=== PATIENT | female | born 1990 | race Caucasian/White ===

== ENCOUNTER 2018-11-08 10:29 | Emergency (ER) | payer BC ==
--- NOTE | 2018-11-08 10:48 | ED ---
Influenza-Like Illness - HPI Summary HPI Summary: 28 year old F brought in by EMS to [facility] from [facility] accompanied by complains of fever, chills, nasal congestion since Sunday11/03/18. Patient denies sore throat. The patient rates the pain 0/10 in severity. Symptoms aggravated by nothing. Symptoms alleviated by nothing. states that he had similar symptoms last week. - History of Current Complaint Time Seen by Provider: 11/08/18 10:41 Hx Obtained From: Patient, Family/Wafer Cutter - Onset/Duration: Lasting Days - 5, Still Present Associated Signs & Symptoms: Negative - sore throat - Allergy/Home Medications Allergies/Adverse Reactions: Allergies Allergy/AdvReac Type Severity Reaction Status Date / Time No Known Allergies Allergy Verified 11/08/18 10:50 Home Medications: Home Medications L.acidoph,Paracasei, B.lactis [Probiotic] 1 each PO DAILY 11/08/18 [History Confirmed 11/08/18] Levonorgestrel (IUD) (NF) [Mirena (NF)] 20 mcg IU ONCE 11/08/18 [History Confirmed 11/08/18] Sertraline* [Zoloft*] 100 mg PO DAILY 11/08/18 [History Confirmed 11/08/18] PMH/Surg Hx/FS Hx/Imm Hx Cardiovascular History: Denies: Hx Pacemaker/ICD Sensory History: Denies: Hx Legally Blind Opthamlomology History: Denies: Hx Legally Blind Psychiatric History: Reports: Hx Depression - Surgical History Surgery Procedure, Year, and Place: none Infectious Disease History: Denies: Traveled Outside the [place] in Last 30 Days - Family History Known Family History: Negative: Blood Disorder - Social History Alcohol Use: None Hx Substance Use: No Substance Use Type: Reports: None Hx Tobacco Use: No Smoking Status (MU): Never Smoked Tobacco Review of Systems Positive: Fever, Chills Positive: Other - nasal congestion. Negative: Sore Throat All Other Systems Reviewed And Are Negative: Yes Physical Exam - Summary Physical Exam Summary: Appearance: The patient is well-nourished in no acute distress and in no acute pain. Skin: The skin is warm and dry, and skin color reflects adequate perfusion. HEENT: The head is normocephalic and atraumatic. The pupils are equal and reactive. The conjunctivae are clear and without drainage. Nares are patent and without drainage. Mouth reveals moist mucous membranes, and the throat is without erythema and exudate. The external ears are intact. The ear canals are patent and without drainage. The tympanic membranes are intact. Neck: The neck is supple with full range of motion and non-tender. There are no carotid bruits. There is no neck vein distension. Respiratory: Chest is non-tender. Lungs are clear to auscultation and breath sounds are symmetrical and equal. Cardiovascular: Heart is regular rate and rhythm. There is no murmur or rub auscultated. There is no peripheral edema and pulses are symmetrical and equal. Abdomen: The abdomen is soft and non-tender. There are normal bowel sounds heard in all four quadrants and there is no organomegaly palpated. Musculoskeletal: There is no back tenderness noted. Extremities are non-tender with full range of motion. There is good capillary refill. There is no peripheral edema or calf tenderness elicited. Neurological: Patient is alert and oriented to person, place and time. The patient has symmetrical motor strength in all four extremities. Cranial nerves are grossly intact. Deep tendon reflexes are symmetrical and equal in all four extremities. Psychiatric: The patient has an appropriate affect and does not exhibit any anxiety or depression. Triage Information Reviewed: Yes Vital Signs Reviewed: Yes Diagnostics - Laboratory Result Diagrams: 11/08/18 11:21 11/08/18 11:21 Lab Statement: Any lab studies that have been ordered have been reviewed, and results considered in the medical decision making process. Flu Symptom Course/Dx - Course Course Of Treatment: Ms. Rodriguez presented with generalized symptoms of chills and malaise with nasal congestion. Her has a viral infection at this time. She was in no acute distress and nontoxic in appearance with stable vitals on arrival. Labs were obtained and were unremarkable as was her physical exam. I think this is likely a viral illness and recommended symptomatic treatment. - Diagnoses Provider Diagnoses: Viral syndrome Discharge ED - Sign-Out/Discharge Documenting (check all that apply): Patient Departure - Discharge Patient Received Moderate/Deep Sedation with Procedure: No - Discharge Plan Condition: Stable Disposition: HOME Patient Education Materials: Viral Syndrome (ED) Referrals: Desiree Mooney NP [Primary Care Provider] - 3 Days Additional Instructions: Follow up with your primary care provider in 3 days. RETURN TO EMERGENCY DEPARTMENT FOR NEW OR WORSENING SYMPTOMS. - Billing Disposition and Condition Condition: STABLE Disposition: Home - Attestation Statements Document Initiated by Scribe: Yes Documenting Scribe: Radha Rivera Provider For Whom Marcy is Documenting (Include Credential): Zia Martínez MD Scribe Attestation: Radha Ashraf, scribed for Zia Martínez MD on 11/08/18 at 1441. Scribe Documentation Reviewed: Yes Provider Attestation: The documentation as recorded by the Radha cantor accurately reflects the service I personally performed and the decisions made by me, Zia Martínez MD Status of Scribe Document: Viewed
[2018-11-08] MEDS ORDERED: NS 0.9% 1000 ML** 1,000 ML IV ONE (11:13)
[2018-11-08 11:29] LABS: ABS Basophils 0.1 10^3/ul (0-0.2); ABS Eosinophils 0.2 10^3/ul (0-0.6); ABS Monocytes 0.5 10^3/ul (0-0.8); ABS Neutrophils 4.8 10^3/ul (1.5-7.7); Eosinophil % 2.3 %; Hematocrit 43 % (35-47); Hemoglobin 14.9 g/dL (12.0-16.0); Lymphocyte % 26.6 %; Mean Corpuscular HGB Conc 35 g/dL (31-36); Mean Corpuscular Hemoglobin 30 pg (27-31); Mean Corpuscular Volume 87 fL (80-97); Mean Platelet Volume 8.1 fL (7.4-10.4); Platelet Count 285 10^3/uL (150-450); Red Blood Count 4.97 10^6 /uL (3.70-4.87); Red Cell Distribution Width 13 % (10-15); White Blood Count 7.5 10^3/uL (3.5-10.8)
[2018-11-08 11:37] LABS: Urine Appearance Clear; Urine Bilirubin Negative (Negative); Urine Blood Negative (Negative); Urine Color Straw; Urine Glucose Negative (Negative); Urine Ketones Negative (Negative); Urine Nitrite Negative (Negative); Urine Protein Negative (Negative); Urine Specific Gravity 1.005 (1.010-1.030); Urine Urobilinogen Negative (Negative)
[2018-11-08 11:48] LABS: ALT 13 U/L (7-52); AST 15 U/L (13-39); Albumin 4.7 g/dL (3.2-5.2); Albumin/Globulin Ratio 1.7 (1-3); Alkaline Phosphatase 58 U/L (34-104); Anion Gap 6 mmol/L (2-11); BUN/Creatinine Ratio 18.1 (8-20); Blood Urea Nitrogen 13 mg/dL (6-24); C Reactive Protein < 1.00 mg/L (<8.01); CO2 Carbon Dioxide 26 mmol/L (22-32); Calcium 9.5 mg/dL (8.6-10.3); Chloride 107 mmol/L (101-111); EGFR African American 117.6 (>60); EGFR Non-African American 97.2 (>60); Globulin 2.7 g/dL (2-4); Glucose 102 mg/dL (70-100); Potassium 3.8 mmol/L (3.5-5.0); Sodium 139 mmol/L (135-145); Total Protein 7.4 g/dL (6.4-8.9)
[2018-11-08 13:34] VITALS: BP 102/66
== END 2018-11-08 13:30 | disposition home or self-care (01) ==
LOC: ED 10:29
DX: B34.9 Viral infection, unspecified (principal); F32.9 Major depressive disorder, single episode, unspecified; Z79.899 Other long term (current) drug therapy
CPT/HCPCS: 36415; 80053; 81003; 85025; 86140; 96360; 96361; 99283

== ENCOUNTER 2019-03-24 12:58 | Emergency (ER) | payer BC ==
[2019-03-24 15:22] LABS: ABS Basophils 0.1 10^3/ul (0-0.2); ABS Eosinophils 0.2 10^3/ul (0-0.6); ABS Lymphocytes 2.2 10^3/ul (1.0-4.8); ABS Monocytes 0.7 10^3/ul (0-0.8); ABS Neutrophils 7.7 10^3/ul (1.5-7.7); Eosinophil % 1.7 %; Hematocrit 41 % (35-47); Lymphocyte % 20.7 %; Mean Corpuscular HGB Conc 34 g/dL (31-36); Mean Corpuscular Hemoglobin 30 pg (27-31); Mean Corpuscular Volume 88 fL (80-97); Mean Platelet Volume 8.1 fL (7.4-10.4); Nucleated Red Blood Cells % 0.1; Platelet Count 324 10^3/uL (150-450); Red Blood Count 4.63 10^6 /uL (3.70-4.87); Red Cell Distribution Width 13 % (10-15); White Blood Count 10.8 10^3/uL (3.5-10.8)
--- NOTE | 2019-03-24 16:07 | ED ---
- HPI Summary HPI Summary: Patient with history of positive home test one week ago complains of lower abdominal cramping 2 days, with sudden onset vaginal bleeding 11:30 AM this morning. States bleeding is now only spotting, and cramps have mostly resolved. LMP 6 weeks ago. . Denies fever, cough, sore throat, CP, and/V /D, change in urine, change in BM. Medical history is none. - History of Current Complaint Chief Complaint: EDOBProblems Stated Complaint: 6 WEEKS/CRAMPING AND BLEEDING PER PT Time Seen by Provider: 03/24/19 16:05 Hx Obtained From: Patient Chief Complaint: Vaginal Bleeding Onset/Duration: Started Hours Ago Timing: Intermittent, Lasting Minutes Severity: Moderate Current Severity: Moderate Pain Intensity: 4 Location of Pain: Suprapubic Character: Cramping Aggravating Factors: Nothing Alleviating Factors: Nothing Associated Signs and Symptoms: Positive: Vaginal Bleeding or Discharge - Allergies/Home Medications Allergies/Adverse Reactions: Allergies Allergy/AdvReac Type Severity Reaction Status Date / Time No Known Allergies Allergy Verified 03/24/19 13:15 Home Medications: Home Medications Pnv No.95/Ferrous Fum/Folic AC [ Caplet] 1 tab PO DAILY 03/24/19 [ History Confirmed 03/24/19] PMH/Surg Hx/FS Hx/Imm Hx Endocrine/Hematology History: Denies: Hx Anticoagulant Therapy Cardiovascular History: Denies: Hx Pacemaker/ICD History: Denies: Hx Dialysis Sensory History: Denies: Hx Legally Blind Opthamlomology History: Denies: Hx Legally Blind EENT History: Denies: Hx Deafness Neurological History: Denies: Hx Dementia Psychiatric History: Reports: Hx Depression - Surgical History Surgery Procedure, Year, and Place: none Infectious Disease History: No Infectious Disease History: Denies: Traveled Outside the US in Last 30 Days - Family History Known Family History: Positive: Non-Contributory Negative: Blood Disorder - Social History Alcohol Use: None Hx Substance Use: No Substance Use Type: Reports: None Hx Tobacco Use: No Smoking Status (MU): Never Smoked Tobacco Review of Systems Constitutional: Negative Eyes: Negative ENT: Negative Cardiovascular: Negative Respiratory: Negative Positive: Abdominal Pain Genitourinary: Negative Musculoskeletal: Negative Skin: Negative Neurological: Negative Psychological: Normal All Other Systems Reviewed And Are Negative: Yes Physical Exam - Physical Exam Triage Information Reviewed: Yes Vital Signs Reviewed: Yes Appearance: Positive: Well-Appearing Skin: Positive: Warm Head/Face: Positive: Normal Head/Face Inspection Eyes: Positive: Normal Neck: Positive: Supple Respiratory/Lung Sounds: Positive: Clear to Auscultation Cardiovascular: Positive: Normal Abdomen Description: Positive: Other: - Mildly tender suprapubically. Abdominal exam otherwise unremarkable. Musculoskeletal: Positive: Normal Neurological: Positive: Normal Psychiatric: Positive: Normal AVPU Assessment: Alert - [place] Coma Scale Eye: 4 - Spontaneous Motor: 6 - Obeys Commands Verbal: 5 - Oriented Coma Scale Total: 15 Procedures - Sedation Patient Received Moderate/Deep Sedation with Procedure: No Diagnostics - Vital Signs Vital Signs Temp Pulse Resp BP Pulse Ox 03/24/19 15:03 99.2 F 90 19 110/74 99 03/24/19 13:11 98.2 F 90 19 129/74 99 - Laboratory Lab Results: Lab Results 03/24/19 03/24/19 03/24/19 Range/Units 15:12 15:12 15:12 WBC 10.8 (3.5-10.8) 10^3/uL RBC 4.63 (3.70-4.87) 10^6 /uL Hgb 14.0 (12.0-16.0) g/dL Hct 41 (35-47) % MCV 88 (80-97) fL MCH 30 (27-31) pg MCHC 34 (31-36) g/dL RDW 13 (10-15) % Plt Count 324 (150-450) 10^3/uL MPV 8.1 (7.4-10.4) fL Neut % (Auto) 70.9 % Lymph % (Auto) 20.7 % [place] % (Auto) 6.1 % Eos % (Auto) 1.7 % Baso % (Auto) 0.6 % Absolute Neuts (auto) 7.7 (1.5-7.7) 10^3/ul Absolute Lymphs (auto) 2.2 (1.0-4.8) 10^3/ul Absolute Monos (auto) 0.7 (0-0.8) 10^3/ul Absolute Eos (auto) 0.2 (0-0.6) 10^3/ul Absolute Basos (auto) 0.1 (0-0.2) 10^3/ul Absolute Nucleated RBC 0.0 10^3/ul Nucleated RBC % 0.1 Beta HCG, Quant 43.48 mIU/mL Blood Type A Positive Result Diagrams: 03/24/19 15:12 Lab Statement: Any lab studies that have been ordered have been reviewed, and results considered in the medical decision making process. Course/Dx - Course Course Of Treatment: Patient with history of positive home test one week ago complains of lower abdominal cramping 2 days, with sudden onset vaginal bleeding 11:30 AM this morning. States bleeding is now only spotting, and cramps have mostly resolved. LMP 6 weeks ago. . Denies fever, cough , sore throat, CP, and/V/D, change in urine, change in BM. Medical history is none. Vital signs within normal limits. Labs unremarkable. HCG 43.48. Transvaginal ultrasound impression: No intrauterine identified. Some free fluid in the cervix. Endometrial stripe is 4.6 cm thick. Ovarian Doppler signals detected bilaterally. - Diagnoses Provider Diagnoses: Threatened miscarriage Discharge ED - Sign-Out/Discharge Documenting (check all that apply): Patient Departure - Discharge Plan Condition: Stable Disposition: HOME Patient Education Materials: Threatened Miscarriage (ED) Referrals: Desiree Mooney NP [Primary Care Provider] - Hailee Arevalo MD [Medical Doctor] - Additional Instructions: Tylenol 650 mg every 4 hours if needed for pain. Get repeat hCG levels in 2 days. You may be evaluated by [facility] Dr. Arevalo in clinic or return to the ED for further evaluation in 2 days. Return to the ED for any new or worsening symptoms. - Billing Disposition and Condition Condition: STABLE Disposition: Home
[2019-03-24 18:35] VITALS: BP 124/86
== END 2019-03-24 18:25 | disposition home or self-care (01) ==
LOC: ED 12:58
DX: O20.0 Threatened abortion (principal); Z3A.01 Less than 8 weeks gestation of pregnancy
CPT/HCPCS: 36415; 76817; 84702; 85025; 86900; 86901; 99282

== ENCOUNTER 2019-05-18 08:55 | Emergency (ER) | payer BC ==
[2019-05-18] MEDS ORDERED: Metoclopramide IV* 5 MG/ML 2 ML VIAL IV ONE (09:16)
--- OUTSIDE RECORDS SUMMARY | 2019-05-18 09:24 | XMS REPORT | Continuity of Care Document ---
:1990 External Reference #:[id number] Author Name Zafar Valera M.D. Address [address] [place] [address] Care Team Providers Name Role Phone Desiree Mooney FNP Care Team Information Cell Geneticist [phone] Problems Active Problems Provider Date Complete or unspecified spontaneous Zafar Valera M.D. Onset: without complication Social History Type Date Description Comments Sex Unknown Cigarette Use Does Not Smoke Cigarettes ETOH Use Denies alcohol use Recreational Drug Use Cannabis Not currently Exercise Type/Frequency Exercises regularly Seat Belt/Car Seat Always uses seat belt Allergies, Adverse Reactions, Alerts Description No Known Drug Allergies Medications Active Medications SIG Qnty Indications Ordering Provider Date Sertraline HCL 1 by mouth every Unknown 100mg day Tablets + Dha 1 by mouth every Unknown 27-1&250mg day THPK Align Unknown Prebiotic-Probiotic 5-1.25mg-GM Chewtabs Immunizations Description No Information Available Vital Signs Date Vital Result Comment 05/05/2019 10:23am BP Systolic 120 mmHg BP Diastolic 62 mmHg Height 68 inches 5'8" Weight 146.00 lb BMI (Body Mass Index) 22.2 kg/m2 Last Menstrual Period [id number] 2 Parity 1 04/10/2019 8:55am BP Systolic 118 mmHg BP Diastolic 56 mmHg Height 68 inches 5'8" Weight 150.00 lb BMI (Body Mass Index) 22.8 kg/m2 Last Menstrual Period [id number] 2 Parity 1 Results Test Acquired Date Facility Test Result H/L Range Note Laboratory test 04/28/2019 [facility] HCG 510.06 mIU/ mL 1, 2 [place] [address] [phone] Type And Screen 04/28/2019 [facility] Patient [place] [address] Type [phone] Antibody Screen NEGATIVE Laboratory test 04/25/2019 [facility] HCG 110.29 mIU/ mL 3, 4 [place] [address] [phone] Laboratory test 04/23/2019 [facility] HCG 28.23 mIU/ mL 5, 6 [place] [address] [phone] 1 W INCONCLUSIVE VIABILITY, UNSP 2 <5.0 Negative 5.0 - 25.0 Indeterminate (Repeat testing recommended after 72 hours) >25.0 Positive Perimenopausal women can display HCG levels of up to 20 mIU/mL 3 [id number] 4 <5.0 Negative 5.0 - 25.0 Indeterminate (Repeat testing recommended after 72 hours) >25.0 Positive Perimenopausal women can display HCG levels of up to 20 mIU/mL 5 [id number] 6 <5.0 Negative 5.0 - 25.0 Indeterminate (Repeat testing recommended after 72 hours) >25.0 Positive Perimenopausal women can display HCG levels of up to 20 mIU/mL Procedures Date Code Description Status 05/05/2019 18175 OB Ultrasound First Trimester Completed Medical Devices Description No Information Available Encounters Description No Information Available Assessments Date Code Description Provider 05/05/2019 R10.2 Pelvic and perineal pain Zafar Valera M.D. 05/05/2019 O36.80x0 with inconclusive Ultrasounds viability, not applicable or unspecified 04/28/2019 O36.80x0 with inconclusive Zafar Valera M.D. viability, not applicable or unspecified 04/28/2019 O36.80x0 with inconclusive Laboratory viability, not applicable or unspecified 04/25/2019 Z32.00 Encounter for test, result Hailee Arevalo MD unknown 04/25/2019 Z32.00 Encounter for test, result Laboratory unknown 04/23/2019 Z32.00 Encounter for test, result Zafar Valera M.D. unknown 04/23/2019 Z32.00 Encounter for test, result Laboratory unknown 04/10/2019 O03.9 Complete or unspecified spontaneous Zafar Valera M.D. without complication 04/10/2019 O02.1 Missed Zafar Valera M.D. Plan of Treatment Future Appointment(s):05/15/2019 11:45 am - Zafar Valera M.D. at [facility]05/15/2019 11:30 am - Ultrasounds at [facility]06/03/2019 10:00 am - Madison Govea CNM at [facility]06/03/2019 9:30 am - Ultrasounds at [facility] Functional Status Description No Information Available Mental Status Description No Information Available Referrals Description No Information Available
--- OUTSIDE RECORDS SUMMARY | 2019-05-18 09:24 | XMS REPORT | Continuity of Care Document ---
:1990 External Reference #:[id number] Author Name Zafar Valera M.D. (transmitted by agent of provider Reena Turner) Address [address] [place] [address] Care Team Providers Name Role Phone Desiree Mooney FNP Care Team Information Senior Revenue Accountant [phone] Problems Active Problems Provider Date Complete or [...] day THPK Align Unknown Prebiotic-Probiotic 5-1.25mg-GM Chewtabs Medications Administered in Office Medication SIG Qnty Indications Ordering Provider Date PT SCRN Tbco Id as Non User Zafar Valera M.D. 05/05/2019 Injection Immunizations Description No Information Available Vital Signs Date Vital Result Comment 05/05/2019 10:23am BP Systolic 120 mmHg BP Diastolic 62 mmHg Height 68 inches 5'8" Weight 146.00 lb BMI (Body Mass Index) 22.2 kg/m2 Last Menstrual Period [id number] 2 Parity 1 04/10/2019 8:55am BP Systolic 118 mmHg BP Diastolic 56 mmHg Height 68 inches 5'8" Weight 150.00 lb BMI (Body Mass Index) 22.8 kg/m2 Last Menstrual Period [id number] 2 Parity 1 Results Test Acquired Date Facility Test Result H/L Range Note Laboratory test 04/28/2019 [facility] HCG 510.06 mIU/ mL 1, 2 [place] [address] [phone] Type And Screen 04/28/2019 [facility] Patient Blood A Positive [place] [address] Type [phone] Antibody Screen NEGATIVE Laboratory test 04/25/2019 [facility] HCG 110.29 mIU/ mL 3, 4 finding [place] [address] [phone] Laboratory test 04/23/2019 [facility] HCG 28.23 mIU/ mL 5, [address] [place] [address] [phone] 1 W INCONCLUSIVE VIABILITY, UNSP 2 <5.0 Negative 5.0 - 25.0 Indeterminate (Repeat testing recommended after 72 hours) >25.0 Positive Perimenopausal women can display HCG levels of up to 20 mIU/mL 3 [id number] 4 <5.0 Negative 5.0 - 25.0 Indeterminate (Repeat testing recommended after 72 hours) >25.0 Positive Perimenopausal women can display HCG levels of up to 20 mIU/mL 5 [id number] 6 <5.0 Negative 5.0 - 25.0 Indeterminate (Repeat testing recommended after 72 hours) >25.0 Positive Perimenopausal women can display HCG levels of up to 20 mIU/mL Procedures Date Code Description Status 05/05/2019 32694 OB Ultrasound First Trimester Completed Medical Devices Description No Information Available Encounters Type Date Location Provider Dx Diagnosis Office Visit 05/05/2019 [facility] aZfar Valera, R10.2 Pelvic and perineal 10:20a M.DRudy pain Assessments Date Code Description Provider 05/05/2019 O36.80x0 with inconclusive Zafar Valera M.D. viability, not applicable or unspecified 05/05/2019 R10.2 Pelvic and perineal pain Zafar Valera M.D. 05/05/2019 O36.80x0 with inconclusive Ultrasounds viability, not applicable or unspecified 04/28/2019 O36.80x0 with inconclusive Zafar A. Gelber, M.D. viability, not applicable or unspecified 04/28/2019 [...] 11:45 am - Zafar Valera M.D. at [facility]05/15/2019 11:30 am - Ultrasounds at [facility]06/03/2019 10:00 am - Madison Govea CNM at [facility]06/03/2019 9:30 am - Ultrasounds at [facility] Functional Status Description No Information Available Mental Status Description No Information Available Referrals Description No Information Available
--- OUTSIDE RECORDS SUMMARY | 2019-05-18 09:24 | XMS REPORT | Continuity of Care Document ---
:1990 External Reference #:[id number] Author Name Zafar Valera M.D. Address [address] [place] [address] Care Team Providers Name Role Phone Desiree Mooney FNP Care Team Information Home Health Caregiver [phone] Problems Description No Information Available Social History Type Date Description Comments Sex [...] Available Vital Signs Date Vital Result Comment 04/10/2019 8:55am BP Systolic 118 mmHg BP Diastolic 56 mmHg Height 68 inches 5'8" Weight 150.00 lb BMI (Body Mass Index) 22.8 kg/m2 Last Menstrual Period [id number] 2 Parity 1 Results Description No Information Available Procedures Description No Information Available Medical Devices Description No Information Available Encounters Description No Information Available Assessments Date Code Description Provider 04/10/2019 O03.9 Complete or unspecified spontaneous Zafar Valera M.D. without complication 04/10/2019 O02.1 Missed Zafar Valera M.D. Plan of Treatment No Information Available Functional Status Description No Information Available Mental Status Description No Information Available Referrals Description No Information Available
--- OUTSIDE RECORDS SUMMARY | 2019-05-18 09:24 | XMS REPORT | Continuity of Care Document ---
:1990 External Reference #:[id number] Author Name Ultrasounds (transmitted by agent of provider Reena Turner) Address [address] [place] [address] Care Team Providers Name Role Phone Desiree Mooney FNP Care Team Information Fine Arts Packer [phone] Problems Active Problems Provider Date Complete or [...] Mass Index) 22.2 kg/m2 Last Menstrual Period [id number] 2 Parity 1 04/10/2019 8:55am BP Systolic 118 mmHg BP Diastolic 56 mmHg Height 68 inches 5'8" Weight 150.00 lb BMI (Body Mass Index) 22.8 kg/m2 Last Menstrual Period [id number] 2 Parity 1 Results Test Acquired Date Facility Test Result H/L Range Note Laboratory test 04/28/2019 [facility] HCG 510.06 mIU/ mL 1, [address] [place] [address] [phone] Type And Screen 04/28/2019 [facility] Patient Blood A Positive [facility] Type [phone] Antibody Screen NEGATIVE Laboratory test 04/25/2019 [facility] HCG 110.29 mIU/ mL 3, [address] [place] [address] [phone] Laboratory test 04/23/2019 [facility] HCG 28.23 mIU/ mL 5, [address] [place] [address] [phone] 1 W INCONCLUSIVE VIABILITY, UNSP 2 <5.0 Negative 5.0 - 25.0 Indeterminate (Repeat testing recommended after 72 hours) >25.0 Positive Perimenopausal women can display HCG levels of up to 20 mIU/mL 3 [id number] 4 <5.0 Negative 5.0 - 25.0 Indeterminate (Repeat testing recommended after 72 hours) >25.0 Positive Perimenopausal women can display HCG levels of up to 20 mIU/mL 5 [id number] 6 <5.0 Negative 5.0 - 25.0 Indeterminate (Repeat testing recommended after 72 hours) >25.0 Positive Perimenopausal women can display HCG levels of up to 20 mIU/mL Procedures Date Code Description Status 05/05/2019 61868 OB Ultrasound First Trimester Completed Medical Devices Description No Information Available Encounters Type Date Location Provider Dx Diagnosis Office Visit 05/05/2019 [facility] Zafar Valera, R10.2 Pelvic and perineal 10:20a M.DRudy [...] 11:45 am - Zafar Valera M.D. at [facility]05/15/2019 11:30 am - Ultrasounds at [facility]06/03/2019 10:00 am - Madison Govea CNM at [facility]06/03/2019 9:30 am - Ultrasounds at [facility] Functional Status Description No Information Available Mental Status Description No Information Available Referrals Description No Information Available
--- OUTSIDE RECORDS SUMMARY | 2019-05-18 09:24 | XMS REPORT | Continuity of Care Document ---
:1990 External Reference #:[id number] Author Name Zafar Valera M.D. (transmitted by agent of provider Mao Mclaughlin ) Address [address] [place] [address] Care Team Providers Name Role Phone Desiree Mooney FNP Care Team Information Forestry Support Specialist [phone] Problems Active Problems Provider Date Complete or [...] Medications Active Medications SIG Qnty Indications Ordering Date Provider Promethazine HCL 1-2 tab by mouth 60tabs Shanna Miranda, 05/12/2019 12.5mg every 4-6 hours as CNM Tablets needed for nausea and vomiting Ondansetron 1 tablet dissolved 30tabs Shanna Miranda, 05/12/2019 4mg Tablets in the mouth every CNM Dispers 8 hours as needed for nausea and vomiting Sertraline HCL 1 by mouth every Unknown 100mg day Tablets + Dha 1 by mouth every Unknown day 27-1&250mg THPK Align Unknown Prebiotic-Probiotic 5-1.25mg-GM Chewtabs Vitamin B6 Unknown Medications Administered in Office Medication SIG Qnty Indications Ordering Provider Date PT SCRN Tbco Id as Non User Zafar Valera M.D. 05/05/2019 Injection Immunizations Description No Information Available Vital Signs Date Vital Result Comment 05/15/2019 11:39am BP Systolic 104 mmHg BP Diastolic 58 mmHg Height 68 inches 5'8" Weight 150.00 lb BMI (Body Mass Index) 22.8 kg/m2 Last Menstrual Period [id number] 2 Parity 1 05/05/2019 10:23am BP Systolic 120 mmHg BP Diastolic 62 mmHg Height 68 inches 5'8" Weight 146.00 lb BMI (Body Mass Index) 22.2 kg/m2 Last Menstrual Period [id number] 2 Parity 1 Results Test Acquired Date Facility Test Result H/L Range Note Laboratory test 04/28/2019 [facility] HCG 510.06 mIU/ mL 1, 2 [place] [address] [phone] Type And Screen 04/28/2019 [facility] [place] [address] Type [phone] Antibody Screen NEGATIVE Laboratory test 04/25/2019 [facility] HCG 110.29 mIU/ mL 3, 4 [place] [address] [phone] Laboratory test 04/23/2019 [facility] HCG 28.23 mIU/ mL 5, 6 [place] [address] [phone] 1 W INCONCLUSIVE VIABILITY, UNSP 2 <5.0 Negative 5.0 - 25.0 Indeterminate (Repeat testing recommended after 72 hours) >25.0 Positive Perimenopausal women can display HCG levels of up to 20 mIU/mL 3 [id number] 4 <5.0 Negative 5.0 - 25.0 Indeterminate (Repeat testing recommended after 72 hours) >25.0 Positive Perimenopausal women can display HCG levels of up to 20 mIU/mL 5 [id number] 6 <5.0 Negative 5.0 - 25.0 Indeterminate (Repeat testing recommended after 72 hours) >25.0 Positive Perimenopausal women can display HCG levels of up to 20 mIU/mL Procedures Date Code Description Status 05/15/2019 86013 OB Ultrasound First Trimester Completed 05/05/2019 01290 OB Ultrasound First Trimester Completed Medical Devices Description No Information Available Encounters Type Date Location Provider Dx Diagnosis Office Visit 05/05/2019 [facility] Office Zafar Valera, R10.2 Pelvic and perineal 10:20a M.D. pain Assessments Date Code Description Provider 05/15/2019 O26.91 related conditions, unspecified, Zafar Valera M.D. first trimester 05/15/2019 O26.91 related conditions, unspecified, Ultrasounds first trimester 05/05/2019 O36.80x0 with inconclusive Zafar Valera M.D. [...] Zafar Valera M.D. Plan of Treatment Future Appointment(s):06/03/2019 10:00 am - Madison Govea CNM at [facility]08/2019 9:30 am - Ultrasounds at [facility] Functional Status Description No Information Available Mental Status Description No Information Available Referrals Description No Information Available
[2019-05-18] MEDS: NS 0.9% 1000 ML** 2,000 ML IV ONE ×2 (09:33→09:34)
[2019-05-18 09:52] LABS: ABS Eosinophils 0.1 10^3/ul (0-0.6); ABS Lymphocytes 1.3 10^3/ul (1.0-4.8); ABS Monocytes 0.7 10^3/ul (0-0.8); ABS Neutrophils 5.7 10^3/ul (1.5-7.7); Eosinophil % 1.3 %; Hematocrit 42 % (35-47); Hemoglobin 14.5 g/dL (12.0-16.0); Lymphocyte % 16.2 %; Mean Corpuscular HGB Conc 34 g/dL (31-36); Mean Corpuscular Hemoglobin 31 pg (27-31); Mean Corpuscular Volume 90 fL (80-97); Mean Platelet Volume 8.2 fL (7.4-10.4); Platelet Count 266 10^3/uL (150-450); Red Blood Count 4.71 10^6 /uL (3.70-4.87); Red Cell Distribution Width 13 % (10-15); White Blood Count 7.7 10^3/uL (3.5-10.8)
[2019-05-18 10:02] LABS: Urine Appearance Cloudy; Urine Bilirubin Negative (Negative); Urine Blood Negative (Negative); Urine Color Amber; Urine Glucose Negative (Negative); Urine Ketones Negative (Negative); Urine Nitrite Negative (Negative); Urine Protein Negative (Negative); Urine Specific Gravity 1.029 (1.010-1.030); Urine Urobilinogen Negative (Negative)
[2019-05-18 10:11] LABS: Albumin 4.1 g/dL (3.2-5.2); Albumin/Globulin Ratio 1.6 (1-3); BUN/Creatinine Ratio 14.1 (8-20); C Reactive Protein 2.17 mg/L (<8.01); Calcium 8.7 mg/dL (8.6-10.3); EGFR African American 106.4 (>60); EGFR Non-African American 87.9 (>60); Globulin 2.6 g/dL (2-4); Magnesium 1.8 mg/dL (1.9-2.7); Potassium 3.3 mmol/L (3.5-5.0); Total Bilirubin 0.4 mg/dL (0.2-1.0); Total Protein 6.7 g/dL (6.4-8.9)
[2019-05-18] MEDS ORDERED: Magnesium Sulfate 2 GM IV* 2 GM/50 ML BAG IVPB ONE (11:03)
[2019-05-18] MEDS ORDERED: NS 0.9% 1000 ML** 1,000 ML IV ONE (11:06)
--- NOTE | 2019-05-18 11:27 | ED ---
Nausea/Vomiting/Diarrhea HPI - HPI Summary HPI Summary: This patient is a 29-year-old 6 week female presenting to the ED with nausea and vomiting. She sees nausea and vomiting have been present 10 days and she has had diarrhea 2 days. She admits to vomiting 10+ times per day as well as diarrhea approximately 5 times per day. She denies the diarrhea being malodorous, however states it is a neon yellow in color. Denies any fevers, sweats, chills. She endorses diffuse abdominal pain, which is mild and started after she had started vomiting. She states she had similar nausea and vomiting while with her first child. She does have zofran at home which has helped, but she continues to have emesis despite taking this 4x daily. She feels she is dehydrated. Spoke with obgyn today who sent her to ED. - History of Current Complaint Chief Complaint: EDNauseaVomitDiarrh Stated Complaint: VOMITING 6 WEEKS PREG Time Seen by Provider: 05/18/19 09:10 Hx Obtained From: Patient ?: No Onset/Duration: Sudden Onset Timing: Constant Severity Initially: Moderate Severity Currently: Moderate Pain Intensity: 0 Pain Scale Used: 0-10 Numeric Location: Diffuse Aggravating Factor(s): Nothing Alleviating Factor(s): Nothing Vomiting Frequency: Every 1-2 hours Nausea/Vomiting Duration: 24-36 hours Diarrhea Presence: No Diarrhea Duration: 0-12 hours - Risk Factors Influenza Risk Factors: Negative Surgical Obstruction Risk Factor(s): Negative - Allergies/Home Medications Allergies/Adverse Reactions: Allergies Allergy/AdvReac Type Severity Reaction Status Date / Time No Known Allergies Allergy Verified 05/18/19 09:01 Home Medications: Home Medications L.acidoph,Paracasei, B.lactis [Probiotic] 1 each PO DAILY 11/08/18 [History Confirmed 05/18/19] Sertraline* [Zoloft*] 50 mg PO QPM 11/08/18 [History Confirmed 05/18/19] Pnv No.95/Ferrous Fum/Folic AC [ Caplet] 1 tab PO DAILY 03/24/19 [ History Confirmed 05/18/19] Metoclopramide TAB* [Reglan TAB*] 10 mg PO Q8H #20 tab 05/18/19 [Rx] Ondansetron ODT TAB* [Zofran 4 MG Odt TAB*] 1 tab PO Q8HR 05/18/19 [History Confirmed 05/18/19] Promethazine HCl 1 - 2 tab PO Q4HR 05/18/19 [History Confirmed 05/18/19] Vancomycin CAP* [Vancomycin 125 mg CAP*] 125 mg PO QID #40 cap 05/18/19 [Rx] PMH/Surg Hx/FS Hx/Imm Hx Previously Healthy: Yes Endocrine/Hematology History: Denies: Hx Anticoagulant Therapy Cardiovascular History: Denies: Hx Pacemaker/ICD History: Denies: Hx Dialysis Sensory History: Denies: Hx Legally Blind, Hx Deafness Opthamlomology History: Denies: Hx Legally Blind Neurological History: Denies: Hx Dementia Psychiatric History: Reports: Hx Depression - Surgical History Surgery Procedure, Year, and Place: none - Immunization History Hx Pertussis Vaccination: No Immunizations Up to Date: Yes Infectious Disease History: No Infectious Disease History: Denies: Traveled Outside the [place] in Last 30 Days - Family History Known Family History: Positive: Non-Contributory Negative: Blood Disorder - Social History Occupation: Unemployed Lives: With Family Alcohol Use: None Hx Substance Use: No Substance Use Type: Reports: None Hx Tobacco Use: No Smoking Status (MU): Never Smoked Tobacco Review of Systems Negative: Fever, Chills, Fatigue, Skin Diaphoresis Negative: Palpitations, Chest Pain Negative: Shortness Of Breath, Cough Positive: Abdominal Pain, Vomiting, Diarrhea, Nausea Genitourinary: Negative Positive: no symptoms reported, see HPI Negative: Arthralgia, Myalgia All Other Systems Reviewed And Are Negative: Yes Physical Exam Triage Information Reviewed: Yes Vital Signs On Initial Exam: Initial Vitals Temp Pulse Resp BP Pulse Ox 98.0 F 98 14 105/70 100 05/18/19 08:59 05/18/19 08:59 05/18/19 08:59 05/18/19 08:59 05/18/19 08:59 Vital Signs Reviewed: Yes Appearance: Positive: Well-Appearing, Well-Nourished Skin: Positive: Warm, Skin Color Reflects Adequate Perfusion Head/Face: Positive: Normal Head/Face Inspection Eyes: Positive: EOMI, PER, Conjunctiva Clear Neck: Positive: Supple, No Lymphadenopathy Respiratory/Lung Sounds: Positive: Clear to Auscultation, Breath Sounds Present Cardiovascular: Positive: Pulses are Symmetrical in both Upper and Lower Extremities Musculoskeletal: Positive: Normal, Strength/ROM Intact Neurological: Positive: Speech Normal Psychiatric: Positive: Normal, Affect/Mood Appropriate AVPU Assessment: Alert Procedures - Sedation Patient Received Moderate/Deep Sedation with Procedure: No Diagnostics - Vital Signs Vital Signs Temp Pulse Resp BP Pulse Ox 05/18/19 08:59 98.0 F 98 14 105/70 100 - Laboratory Lab Results: Lab Results 05/18/19 05/18/19 05/18/19 Range/Units 09:23 09:23 09:23 WBC 7.7 (3.5-10.8) 10^3/uL RBC 4.71 (3.70-4.87) 10^6 /uL Hgb 14.5 (12.0-16.0) g/dL Hct 42 (35-47) % MCV 90 (80-97) fL MCH 31 (27-31) pg MCHC 34 (31-36) g/dL RDW 13 (10-15) % Plt Count 266 (150-450) 10^3/uL MPV 8.2 (7.4-10.4) fL Neut % (Auto) 73.8 % Lymph % (Auto) 16.2 % [place] % (Auto) 8.4 % Eos % (Auto) 1.3 % Baso % (Auto) 0.3 % Absolute Neuts (auto) 5.7 (1.5-7.7) 10^3/ul Absolute Lymphs (auto) 1.3 (1.0-4.8) 10^3/ul Absolute Monos (auto) 0.7 (0-0.8) 10^3/ul Absolute Eos (auto) 0.1 (0-0.6) 10^3/ul Absolute Basos (auto) 0.0 (0-0.2) 10^3/ul Absolute Nucleated RBC 0.0 10^3/ul Nucleated RBC % 0.0 Sodium 135 (135-145) mmol/L Potassium 3.3 L (3.5-5.0) mmol/L Chloride 103 (101-111) mmol/L Carbon Dioxide 25 (22-32) mmol/L Anion Gap 7 (2-11) mmol/L BUN 11 (6-24) mg/dL Creatinine 0.78 (0.51-0.95) mg/dL Est GFR ( Amer) 106.4 (>60) Est GFR (Non-Af Amer) 87.9 (>60) BUN/Creatinine Ratio 14.1 (8-20) Glucose 114 H (70-100) mg/dL Lactic Acid 1.2 (0.5-2.0) mmol/L Calcium 8.7 (8.6-10.3) mg/dL Magnesium 1.8 L (1.9-2.7) mg/dL Total Bilirubin 0.40 (0.2-1.0) mg/dL AST 17 (13-39) U/L ALT 15 (7-52) U/L Alkaline Phosphatase 52 (34-104) U/L C-Reactive Protein 2.17 (<8.01) mg/L Total Protein 6.7 (6.4-8.9) g/dL Albumin 4.1 (3.2-5.2) g/dL Globulin 2.6 (2-4) g/dL Albumin/Globulin Ratio 1.6 (1-3) Lipase 25 (11.0-82.0) U/L Urine Color Urine Appearance Urine pH (5-9) Ur Specific [place] (1.010-1.030) Urine Protein (Negative) Urine Ketones (Negative) Urine Blood (Negative) Urine Nitrate (Negative) Urine Bilirubin (Negative) Urine Urobilinogen (Negative) Ur Leukocyte Esterase (Negative) Urine Glucose (Negative) Urine Ascorbic Acid (Negative) 05/18/19 Range/Units 09:39 WBC (3.5-10.8) 10^3/uL RBC (3.70-4.87) 10^6 /uL Hgb (12.0-16.0) g/dL Hct (35-47) % MCV (80-97) fL MCH (27-31) pg MCHC (31-36) g/dL RDW (10-15) % Plt Count (150-450) 10^3/uL MPV (7.4-10.4) fL Neut % (Auto) % Lymph % (Auto) % [place] % (Auto) % Eos % (Auto) % Baso % (Auto) % Absolute Neuts (auto) (1.5-7.7) 10^3/ul Absolute Lymphs (auto) (1.0-4.8) 10^3/ul Absolute Monos (auto) (0-0.8) 10^3/ul Absolute Eos (auto) (0-0.6) 10^3/ul Absolute Basos (auto) (0-0.2) 10^3/ul Absolute Nucleated RBC 10^3/ul Nucleated RBC % Sodium (135-145) mmol/L Potassium (3.5-5.0) mmol/L Chloride (101-111) mmol/L Carbon Dioxide (22-32) mmol/L Anion Gap (2-11) mmol/L BUN (6-24) mg/dL Creatinine (0.51-0.95) mg/dL Est GFR ( Amer) (>60) Est GFR (Non-Af Amer) (>60) BUN/Creatinine Ratio (8-20) Glucose (70-100) mg/dL Lactic Acid (0.5-2.0) mmol/L Calcium (8.6-10.3) mg/dL Magnesium (1.9-2.7) mg/dL Total Bilirubin (0.2-1.0) mg/dL AST (13-39) U/L ALT (7-52) U/L Alkaline Phosphatase (34-104) U/L C-Reactive Protein (<8.01) mg/L Total Protein (6.4-8.9) g/dL Albumin (3.2-5.2) g/dL Globulin (2-4) g/dL Albumin/Globulin Ratio (1-3) Lipase (11.0-82.0) U/L Urine Color [place] Urine Appearance Cloudy Urine pH 5.0 (5-9) Ur Specific [place] 1.029 (1.010-1.030) Urine Protein Negative (Negative) Urine Ketones Negative (Negative) Urine Blood Negative (Negative) Urine Nitrate Negative (Negative) Urine Bilirubin Negative (Negative) Urine Urobilinogen Negative (Negative) Ur Leukocyte Esterase Negative (Negative) Urine Glucose Negative (Negative) Urine Ascorbic Acid * A (Negative) Result Diagrams: 05/18/19 09:23 05/18/19 09:23 Lab Statement: Any lab studies that have been ordered have been reviewed, and results considered in the medical decision making process. Naus/Vom/Diarrhea Course/Dx - Course Course Of Treatment: Patient is evaluated for nausea and vomiting in in the first trimester. She denies vomiting currently, however remains nauseous. Denies any diarrhea. She states she may be able to give us a stool sample but is unsure. She is given 2 L fluids and Reglan. This with good effect and she is requesting something to eat. Labs obtained which is positive for hypomagnesemia, otherwise fairly WNL. She is repleted with 2 mg mag sulfate IV. Patient continues to feel well. Pt able to give stool sample prior to discharge. After discharge, this returned with a positive C. difficile infection. Patient was called and given instructions for clindamycin 4 times daily (according to up-to-date, this is safe in and should be used in females with C. difficile). Discussed hand washing and other precautions. She will also follow up with obgyn and return if she continues to have symptoms or feeling of becoming dehydrated. - Differential Dx/Diagnosis Differential Diagnoses - Female: Dehydration Provider Diagnosis: Hyperemesis, Clostridioides difficile diarrhea Condition At Discharge: Stable Discharge ED - Sign-Out/Discharge Documenting (check all that apply): Patient Departure - Discharge Plan Condition: Stable Disposition: HOME Prescriptions: Metoclopramide TAB* [Reglan TAB*] 10 mg PO Q8H #20 tab Vancomycin CAP* [Vancomycin 125 mg CAP*] 125 mg PO QID #40 cap Patient Education Materials: Nausea and Vomiting in (ED) Referrals: Desiree Mooney NP [Primary Care Provider] - Additional Instructions: Reglan 10mg three times daily Continue with your zofran and Vitamin B 6 Please follow up with obgyn eat small amounts at a time You can add reglan to your regimen to prevent nausea and vomiting - Billing Disposition and Condition Condition: STABLE Disposition: Home
[2019-05-18] MEDS ORDERED: Ondansetron INJ* 2 MG/ML VIAL IV ONE (12:36)
[2019-05-18 13:49] VITALS: BP 103/69
== END 2019-05-18 13:47 | disposition home or self-care (01) ==
LOC: ED 08:55
DX: O21.9 Vomiting of pregnancy, unspecified (principal); Z3A.01 Less than 8 weeks gestation of pregnancy; A04.72 Enterocolitis due to Clostridium difficile, not specified as recurrent; E86.0 Dehydration; R10.9 Unspecified abdominal pain
CPT/HCPCS: 36415; 80053; 81003; 83605; 83630; 83690; 83735; 85025; 86140; 87045; 87046; 87493; 87899; 99283; J2405; J2765; J3475

== ENCOUNTER 2020-01-03 17:24 | Inpatient (IN) ==
[2020-01-03] MEDS ORDERED: Buffered Lidocaine 1% SYRIN 1 ml INTRADERM ONE (17:31)
[2020-01-03] MEDS ORDERED: Lactated Ringers 1000 ml BAG 1,000 ML IV ONE ×2 (17:31→23:18)
[2020-01-03] MEDS ORDERED: Lactated Ringers 1000 ml BAG 1,000 ML IV SCH ×2 (18:00→23:45)
[2020-01-03 18:22] LABS: Urine Benzodiazepine Screen None Detected (None Detect); Urine Cannabinoids Screen None Detected (None Detect); Urine Opiates Screen None Detected (None Detect)
[2020-01-03 22:14] LABS: ABS Basophils 0.1 10^3/ul (0-0.2); ABS Eosinophils 0.1 10^3/ul (0-0.6); ABS Lymphocytes 2.7 10^3/ul (1.0-4.8); ABS Monocytes 0.9 10^3/ul (0-0.8); ABS Neutrophils 13.6 10^3/ul (1.5-7.7); Eosinophil % 0.7 %; Hematocrit 36 % (35-47); Hemoglobin 12.3 g/dL (12.0-16.0); Lymphocyte % 15.3 %; Mean Corpuscular HGB Conc 34 g/dL (31-36); Mean Corpuscular Hemoglobin 29 pg (27-31); Mean Corpuscular Volume 87 fL (80-97); Mean Platelet Volume 9.2 fL (7.4-10.4); Platelet Count 220 10^3/uL (150-450); Red Blood Count 4.19 10^6 /uL (3.70-4.87); Red Cell Distribution Width 13 % (10-15); White Blood Count 17.4 10^3/uL (3.5-10.8)
[2020-01-03] MEDS ORDERED: OBEPIDURAL 250 ML EPIDURAL ONE (22:17)
[2020-01-03] MEDS ORDERED: Bupivacaine 0.25% SDV PF 10 ML VIAL INJ ONE (22:43)
[2020-01-03] MEDS ORDERED: EPHEDrine (Pressors) 50 MG/ML VIAL IV PUSH PRN ×2 (23:18)
[2020-01-03] MEDS ORDERED: Phenylephrine 40 mcg/mL 10mL (400mcg) SYRINGE IV PUSH PRN ×2 (23:18)
[2020-01-03] MEDS ORDERED: Sodium Citrate/Citric Acid LIQ 15 ML UDC PO PRN (23:18)
[2020-01-03] MEDS ORDERED: OBEPIDURAL 250 ML EPIDURAL SCH (23:45)
[2020-01-04] MEDS ORDERED: Oxytocin in LR 20 UNITS/1,000 ML BAG IVPB ONE (02:18)
[2020-01-04] MEDS ORDERED: Witch Hazel PAD JAR TOPICAL PRN (02:54)
[2020-01-04] MEDS ORDERED: Dibucaine 1% OINT 28.35 GM TUBE PR PRN (02:54)
[2020-01-04] MEDS ORDERED: Glycerin ADULT 2.4 gm SUPP PR PRN (02:54)
[2020-01-04] MEDS ORDERED: Oxytocin in LR 20 UNITS/1,000 ML BAG IVPB SCH (03:00)
[2020-01-04] MEDS ORDERED: Lactated Ringers 1000 ml BAG 1,000 ML IV SCH (03:00)
[2020-01-04] MEDS ORDERED: Influenza VAC *QUAD* 2020-21* 0.5 ML SYRINGE IM ONE (20:00)
[2020-01-05 06:18] LABS: ABS Basophils 0.1 10^3/ul (0-0.2); ABS Eosinophils 0.4 10^3/ul (0-0.6); ABS Lymphocytes 2.8 10^3/ul (1.0-4.8); ABS Monocytes 0.9 10^3/ul (0-0.8); ABS Neutrophils 7.1 10^3/ul (1.5-7.7); Eosinophil % 3.3 %; Hematocrit 35 % (35-47); Hemoglobin 11.8 g/dL (12.0-16.0); Lymphocyte % 24.9 %; Mean Corpuscular HGB Conc 34 g/dL (31-36); Mean Corpuscular Hemoglobin 30 pg (27-31); Mean Corpuscular Volume 88 fL (80-97); Mean Platelet Volume 8.8 fL (7.4-10.4); Platelet Count 207 10^3/uL (150-450); Red Cell Distribution Width 14 % (10-15); White Blood Count 11.2 10^3/uL (3.5-10.8)
[2020-01-05 08:49] VITALS: BP 118/71
== END 2020-01-05 11:24 | disposition home or self-care (01) | DRG 560 ==
LOC: MCHOBOUT 17:24 → MCHOB 17:25
PROVIDERS: ADMIT Midwife; ATTEND Midwife

== ENCOUNTER 2023-07-03 08:32 | Observation (INO) ==
[2023-07-03 08:52] LABS: ABS Eosinophils 0.2 10^3/uL (0.0-0.5); ABS Lymphocytes 1.2 10^3/uL (1.0-4.8); ABS Monocytes 0.8 10^3/uL (0.0-0.9); Eosinophil % 2.6 %; Hematocrit 39.2 % (35-45); Hemoglobin 13.1 g/dL (11.5-14.3); Lymphocyte % 16.6 %; Mean Corpuscular Hemoglobin 30.2 pg (27-33); Mean Corpuscular Hgb Conc 33.5 g/dL (31-36); Mean Corpuscular Volume 90.2 fL (80-97); Platelet Count 266 10^3/uL (150-450); Red Blood Count 4.35 10^6/uL (3.63-4.92); Red Cell Distribution Width 13.3 % (12-17); White Blood Count 7.2 10^3/uL (3.8-11.8)
[2023-07-03 09:01] LABS: INR 1.01 (0.83-1.13)
[2023-07-03 09:15] LABS: High Sens Troponin Baseline < 3 pg/mL (<15)
[2023-07-03 09:44] LABS: ALT 15 U/L (7-52); AST 15 U/L (13-39); Albumin 4.1 g/dL (3.2-5.2); Albumin/Globulin Ratio 1.6 (1-3); Alkaline Phosphatase 72 U/L (35-149); Anion Gap 9 mmol/L (2-16); Blood Urea Nitrogen 11 mg/dL (6-24); C Reactive Protein 22.41 mg/L (<8.01); CO2 Carbon Dioxide 28 mmol/L (22-32); Chloride 103 mmol/L (101-111); Creatinine, Serum 0.69 mg/dL (0.51-0.95); Globulin 2.5 g/dL (2-4); Glucose 98 mg/dL (70-100); Potassium 4.8 mmol/L (3.5-5.0); Sodium 140 mmol/L (135-145); Total Bilirubin 0.4 mg/dL (0.2-1.0); Total Protein 6.6 g/dL (6.4-8.9); eGFR CKD-EPI 118.2 (>60)
[2023-07-03 10:11] LABS: High Sensitivity Troponin 1 Hr < 3 pg/mL (<15)
[2023-07-03] MEDS: Iohexol 350 (CONTRAST) 500 ML MDV IV ONE (11:41)
[2023-07-03 12:21] LABS: Erythrocyte Sed Rate 12 mm/Hr (0-19)
[2023-07-03] MEDS: Labetalol IV 5 MG/ML 20 ml VIAL IV PUSH ONE (13:20)
[2023-07-03] MEDS: CMCS:Lamotrigine XR 100 mg TAB (NF) PO SCH (23:00)
[2023-07-04 06:12] LABS: ABS Eosinophils 0.3 10^3/uL (0.0-0.5); ABS Lymphocytes 1.7 10^3/uL (1.0-4.8); ABS Monocytes 0.9 10^3/uL (0.0-0.9); ABS Neutrophils 3.7 10^3/uL (1.5-7.6); Eosinophil % 5.1 %; Hematocrit 37.7 % (35-45); Hemoglobin 12.8 g/dL (11.5-14.3); Lymphocyte % 25.9 %; Mean Corpuscular Hemoglobin 30.2 pg (27-33); Mean Corpuscular Hgb Conc 33.9 g/dL (31-36); Mean Corpuscular Volume 89.2 fL (80-97); Mean Platelet Volume 8.2 fL (7.5-11.2); Platelet Count 251 10^3/uL (150-450); Red Blood Count 4.23 10^6/uL (3.63-4.92); Red Cell Distribution Width 13.6 % (12-17); White Blood Count 6.7 10^3/uL (3.8-11.8)
[2023-07-04 07:30] LABS: Albumin 3.8 g/dL (3.2-5.2); Albumin/Globulin Ratio 1.7 (1-3); C Reactive Protein 27.86 mg/L (<8.01); Calcium 8.3 mg/dL (8.6-10.3); Creatinine, Serum 0.61 mg/dL (0.51-0.95); Globulin 2.2 g/dL (2-4); Potassium 4.2 mmol/L (3.5-5.0); Total Bilirubin 0.3 mg/dL (0.2-1.0); eGFR CKD-EPI 121.7 (>60)
[2023-07-04 09:32] VITALS: BP 115/72
== END 2023-07-04 18:10 | disposition home or self-care (01) ==
LOC: EDHOLD 08:32 → ED 08:32 → EDHOLD 14:38 → MEDTELE 16:47
PROVIDERS: ADMIT Internal Medicine; ATTEND Internal Medicine